=== PATIENT | male | born 1985 | race Caucasian/White ===

== ENCOUNTER 2017-03-31 17:34 | Emergency (ER) | payer OTHER ==
--- NOTE | ~2017-03-31 | CR181 ---
[facility] A Service of [facility] RADIOLOGY TEXT RESULTS PATIENT: LILLIAM SOLANO LOCATION: [facility] : 89 UNIT #: [id number] AGE: [address]: Faith Alvares APRN SEX: M ORDER DR: [id number] [facility] [address] [place], [place] [address] [id number] E MR#: [id number] Acc #: [id number] NAME: LILLIAM SOLANO : 1985 SEX: M STUDY DATE/TIME: 03/31/2017 18:36 UNIT: [place] ROOM: STUDY DESCRIPTION: CR Lumbar Spine 2 or 3 Views Attending Physician: Faith Alvares A.P.R.N. Ordering Physician: Ed Gorge Nichols M.D. Primary Care Physician: Ashvin Gerardo D.O. MEDICAL IMAGING REPORT This report is preliminary unless electronic signature is present EXAM Lumbar spine series HISTORY Lumbar spine pain. Patient had a seizure 4 days ago and has low back pain. COMMENT AP, lateral and lumbosacral views lumbar spine reviewed. Comparison studies from 04/07/2015. Sagittal alignment is normal. There is a mild loss of disc height at L5-S1 versus a developmentally small disc. This is not changed from 2015. No acute fracture is suspected. No traumatic malalignment is suspected. Probably mild lower lumbar facet arthritis. IMPRESSION No acute fracture or traumatic malalignment in the lumbar spine. Probably some mild lower lumbar facet arthritis. Dictated by... Lea Buckley M.D. THIS IS AN ELECTRONICALLY VERIFIED REPORT Lea Buckley M.D. at 04/01/2017 7:57 AM HARRY/maritza TD: 04/01/2017 04:49 JOB #: [id number] MEDICAL IMAGING REPORT [facility] A Service of [facility] RADIOLOGY TEXT RESULTS PATIENT: LILLIAM SOLANO LOCATION: [facility] : 89 UNIT #: [id number] AGE: [address]: Faith Alvares APRN SEX: M ORDER DR: Page 1 of 1 COPY
--- NOTE | ~2017-03-31 | CR230 ---
[facility] A Service of [facility] RADIOLOGY TEXT RESULTS PATIENT: LILLIAM SOLANO LOCATION: [facility] : 89 UNIT #: [id number] AGE: [address]: Faith Alvares APRN SEX: M ORDER DR: [id number] [facility] [address] [place], [place] [address] [id number] E MR#: [id number] Acc #: [id number] NAME: LILLIAM SOLANO : 1985 SEX: M STUDY DATE/TIME: 03/31/2017 18:36 UNIT: [facility] ROOM: STUDY DESCRIPTION: CR Shoulder Min 2 View Rt Attending Physician: Faith Alvares A.P.R.N. Ordering Physician: Ed Gorge Nichols M.D. Primary Care Physician: Ashvin Gerardo D.O. MEDICAL IMAGING REPORT This report is preliminary unless electronic signature is present EXAM Shoulder 2 views right HISTORY Remote injury, right shoulder pain. History of a seizure 4 days ago. Also complains of numbness and tingling in right upper extremity. COMMENT 3 views of the right shoulder are submitted for review. There is no comparison. There is no acute fracture, dislocation or radiopaque foreign body suspected. IMPRESSION Negative plain film assessment right shoulder. Dictated by... Lea Buckley M.D. THIS IS AN ELECTRONICALLY VERIFIED REPORT Lea Buckley M.D. at 04/01/2017 7:56 AM HARRY/maritza TD: 04/01/2017 04:45 JOB #: [id number] MEDICAL IMAGING REPORT Page 1 of 1 COPY
--- NOTE | ~2017-03-31 | CR210 ---
[facility] A Service of [facility] RADIOLOGY TEXT RESULTS PATIENT: LILLIAM SOLANO LOCATION: [facility] : 89 UNIT #: [id number] AGE: [address]: Faith Alvares APRN SEX: M ORDER DR: [id number] [facility] [address] [place], [place] [address] [id number] E MR#: [id number] Acc #: [id number] NAME: LILLIAM SOLANO : 1985 SEX: M STUDY DATE/TIME: 03/31/2017 18:35 UNIT: [facility] ROOM: STUDY DESCRIPTION: CR Ribs Uni 2 View W PA Ch Lt Attending Physician: Faith Alvares A.P.R.N. Ordering Physician: Ed Gorge Nichols M.D. Primary Care Physician: Ashvin Gerardo D.O. MEDICAL IMAGING REPORT This report is preliminary unless electronic signature is present EXAM Chest x-ray with left ribs HISTORY 31-year-old male patient fell during a seizure and now complains of pain left ribs. Seizure was 4 days ago. COMMENT Frontal view of the chest and 3 views of the left ribs are submitted for review. There is no comparison. The cardiac silhouette size is normal. There is no evidence for acute-appearing parenchymal infiltrate or acute congestive failure. There is no pneumothorax. No pleural effusion. No displaced left rib fracture is seen. IMPRESSION 1. No displaced left rib fracture. 2. No active disease is seen in the chest. Dictated by... Lea Buckley M.D. THIS IS AN ELECTRONICALLY VERIFIED REPORT eLa Buckley M.D. at 04/01/2017 7:56 AM HARRY/maritza TD: 04/01/2017 04:43 JOB #: [id number] [facility] A Service of [facility] RADIOLOGY TEXT RESULTS PATIENT: LILLIAM SOLANO LOCATION: [facility] : 89 UNIT #: [id number] AGE: [address]: Faith Alvares APRN SEX: M ORDER DR: MEDICAL IMAGING REPORT Page 1 of 1 COPY
[~2017-03-31 17:34] MED LIST: AUGMENTIN875 M1 PO; BACTRIM DS TABL1 TAB PO; CILOXAN5 ML OS; DEPAKOTE; DEPAKOTE PO; DIVALPROEX SOD500 MG PO; FLOMAX0.4 M1 PO; LORTAB 5/500 TA1 TA1 PO; MED FOR DEPRESSION; MOTRIN400 MG PO; NORCO 5/325 TAB1 TAB PO; PHENERGAN PO; PHENERGAN25 MG PO; VICODIN 5/500 T1 TAB PO; [UNRECOGNIZED DRUG - OTHER]
== END 2017-03-31 19:45 | disposition home or self-care (01) ==
LOC: CFTX 17:34 → CED 17:34 → CFTX 18:19
DX: S20.212A Contusion of left front wall of thorax, initial encounter (principal); M54.5 Low back pain; M25.511 Pain in right shoulder; G89.29 Other chronic pain; F17.210 Nicotine dependence, cigarettes, uncomplicated; X58.XXXA Exposure to other specified factors, initial encounter
CPT/HCPCS: 71101; 72100; 73030; 99283